=== PATIENT | female | born 1985 | race Caucasian/White ===

== ENCOUNTER → 2017-09-01 16:00 | Outpatient (CLI) | payer BC, SELFPAY ==
[2017-09-01 17:42] LABS: Absolute Lymphocyte Count 1.92 X10^3/ul (0.83-4.51); Absolute Neutrophil Count 6.3 X10^3/uL (2.0-7.7); Basophil# 0.02 X10^3/uL; Basophil% 0.2 % (0-1); Eosinophil# 0.05 X10^3/uL; Eosinophils% 0.5 % (0-5); Hematocrit 33.4 % (37-47); Hemoglobin 10.2 g/dl (12.0-15.0); Lymphocyte # 1.92 X10^3/ul (4.0); Mean Corp Hgb Conc 30.5 g/gl (32-36); Mean Corpuscular Hgb 24.4 pg (27.0-32.0); Mean Corpuscular Volume 79.9 fL (81-99); Mean Platelet Vol. 12.4 fl (6.2-12.0); Monocyte# 0.84 X10^3/uL; Monocyte% 9.2 % (0-10); Neutrophil # 6.28 X10^3/uL (2.7-7.7); Neutrophil % 68.9 % (47-70); POSITIVE COUNT NO; POSITIVE DIFFERENTIAL NO; POSITIVE MORPHOLOGY NO; Platelet Count 221 K/mm3 (150-450); RBC Distribution Width CV 16.9 % (11.6-14.6); RBC Distribution Width SD 48.4 fl (35.1-43.9); Red Blood Count 4.18 M/mm3 (4.2-5.4); White Blood Count 9.1 K/mm3 (4.4-11.0)
[2017-09-01 18:04] LABS: Thyroid Stim Hormone (TSH) 0.73 uIU/mL (0.358-3.74)
== END ==
PROVIDERS: Family Provider Family Medicine; PCP Family Medicine; Visit Provider Family Medicine
DX: F32.9 Major depressive disorder, single episode, unspecified (principal)
CPT/HCPCS: 36415; 84443; 85025

== ENCOUNTER → 2017-11-04 16:14 | Outpatient (CLI) | payer BC, SELFPAY ==
[2017-11-04 17:52] LABS: Iron 34 ug/dL (50-170)
[2017-11-04 17:59] LABS: Absolute Lymphocyte Count 2.43 X10^3/ul (0.83-4.51); Absolute Neutrophil Count 6.5 X10^3/uL (2.0-7.7); Basophil# 0.02 X10^3/uL; Basophil% 0.2 % (0-1); Eosinophil# 0.08 X10^3/uL; Eosinophils% 0.8 % (0-5); Hematocrit 33.9 % (37-47); Hemoglobin 10.4 g/dl (12.0-15.0); Lymphocyte # 2.43 X10^3/ul (4.0); Lymphocyte % 24.5 % (19-41); Mean Corp Hgb Conc 30.7 g/gl (32-36); Mean Corpuscular Hgb 24.6 pg (27.0-32.0); Mean Corpuscular Volume 80.1 fL (81-99); Mean Platelet Vol. 11.6 fl (6.2-12.0); Monocyte# 0.85 X10^3/uL; Monocyte% 8.6 % (0-10); Neutrophil # 6.51 X10^3/uL (2.7-7.7); Neutrophil % 65.8 % (47-70); Platelet Count 236 K/mm3 (150-450); RBC Distribution Width SD 52.9 fl (35.1-43.9); Red Blood Count 4.23 M/mm3 (4.2-5.4); White Blood Count 9.9 K/mm3 (4.4-11.0)
[2017-11-04 18:01] LABS: POSITIVE COUNT NO; POSITIVE DIFFERENTIAL NO; POSITIVE MORPHOLOGY NO
== END ==
PROVIDERS: Family Provider Family Medicine; PCP Family Medicine; Visit Provider Family Medicine
DX: D50.9 Iron deficiency anemia, unspecified (principal)
CPT/HCPCS: 36415; 83540; 85025

== ENCOUNTER 2018-03-08 16:00 | Outpatient (RCR) | payer OTHER, SELFPAY ==
--- NOTE | 2018-02-15 16:37 | HP.PTEVAL ---
Patient's Visit Information RUTH PIZANO is a 32 year old F referred to Physical Therapy by TRISH Heller with a diagnosis of Left Shoulder Pain. Date of Evaluation: 02/15/18 Physical Therapist: Francheska Gonzalez - Visit Plan Frequency: 2x /Week Duration: 3 Weeks Plan: Focus on scap s/s and impingment signs- modality of choice US or TENS - Subjective Subjective: Patient reports pain started over a month ago- what made her go to the [facility]- when she was pushing a rack it had a horrible pain in it. [facility]- the first time they gave restrictions of #10- wasn't getting better. Went back and she kept #10 weight and 40 hour week restriction- if sore after therapy would do an MRI. No injections or images. Was on vacation and it was still sore the first few days but it wasn't bad at the end becuase she wasn't using it. Worst: 5/10 agg: behind the back, sleeping on it, putting it up on top of the wheel for awhile. Eases: not using it Best: 0/10. Describes pain as numb and sometime she has tingling all the way down to the hand. Tingling is in all the fingers. If she moves it and shakes it off the pain goes away after a minute. Right hand domiante. Pain in the biceps tendon area. No issues with finger dexterity issues or dropping things. No neck pain. Gets migranes frequently but that is nothing new. Migraines are worse than heat- has them at least 2x a week. Sometimes she can push through and sometimes debilitating. Pain is normally on the yazidism of the head. No blurred vision or dizziness. Lifting up to #10 parts- grabbing it down- repetitive motion. Sleep: disturbed when she rolls over onto it- usually side or stomach sleeper. PMHx: healthy Meds: prozac generic. Restricions lifted Feb 26, 2018. - Objective Posture: FH, RS- should could correct with verbal and tactile cues- does not maintain. Gait: no deviation noted- good arm swing and trunk rotation- no guarding. Palpation: not tender to touch. ROM: WFL in all planes of the cervical, shoulder, elbow and wrist- pain with end range IR behind the back. Sensation: WNL. Strength: Scap: fair with mild winging bilaterally. Shoulder: 4+/5 throughout pain with flexion, abduction, IR, Elbow: 5/5, Wrist: 5/5, Camera Repair Technician: 60/65/70. Special test: sosa lawrence impingment: positive Neer: negative. - Goals Goal 1:: Patient will be I with HEP and progression Goal Time Frame: 4-6 Weeks Goal 2:: Patient will demo full IR with 0/10 pain Goal Time Frame: 4-6 Weeks Goal 3:: Patient will maintain proper posture t/o tx session to demo increased scap s/s. Goal Time Frame: 4-6 Weeks Goal 4:: Patient will report 0/10 pain with work activities - Rehabilitation Potential Physical Therapy Diagnosis: Patient presents with hypomobility- she has impingment signs and decreased strength/endurance leading to poor posture and increased pain with work activities and repetitive actions. Rehabilitation Potential: Good - Anticipated Interventions Patient/Client Instruction: Educate patient on: Benefits of Fitness Program For the Purpose of:: To improve ability of physical actions for home/community/work/leisure Therapeutic Exercise to Include: Strength training, Endurance training, Body mechanics, Postural training, Scapular Strength/Stabilization For the Purpose of:: To improve muscle performance and motor function TENS: Yes Cryotherapy (ice pack, ice massage): Yes Thermo therapy (hot pack): Yes Ultrasound (thermal/non thermal): Yes For the Purpose of:: To decrease pain, To decrease swelling/inflammation Thank you for the opportunity to evaluate your patient. For Medicare and Medicare HMO plans, please review the plan of care and approve it. It will need to be FAXED BACK to us at [phone] for Medicare purposes. Please let me know if there are questions or concerns regarding this plan of care. Physician Signature: Date:
--- NOTE | 2018-03-08 16:11 | HP.PTDCSUM ---
HP - PT D/C Summary It has been my pleasure to treat RUTH PIZANO under orders from TRISH Heller, for the diagnosis of Left Shoulder Pain for a total of 6 visit(s). Discharge Date: Please see the following information for a summary of their discharge status. - Subjective Subjective: Patient reports its better but when she reaches behind her back is still bothers her. Feels a difference- thu-thu okay but feels it more on and thursday. Can drive with her hand up longer without it bothering her. Worst 2/10 Best: 0/10. Mostly dull and achy and tenderness. Occasionally N/t but decreased- not enough to count. - Pain L SH Pain Intensity (Out of 10): Unrated - Overall Improvement % Improvement: 70 - Objective Objective/Function: No significant changes since IE objectively but subjective is better- Posture: good throughout Gait: no deviation noted- good arm swing and trunk rotation- no guarding. Palpation: not tender to touch. ROM: WFL in all planes of the cervical, shoulder, elbow and wrist- pain with end range IR behind the back. Sensation: WNL. Strength: Scap: fair with mild winging bilaterally. Shoulder: 4+/5 throughout pain with flexion, abduction, IR, Elbow: 5/5, Wrist: 5/5, Taxicab Starter: 65/65/75. Special test: sosa lawrence impingment: positive Neer: negative. - Goals Goal 1:: Patient will be I with HEP and progression Goal Progress: Goal Met Goal 2:: Patient will demo full IR with 0/10 pain Goal Progress: Progressing Goal 3:: Patient will maintain proper posture t/o tx session to demo increased scap s/s. Goal Progress: Progressing Goal 4:: Patient will report 0/10 pain with work activities Goal Progress: Progressing - Plan Plan: Discharge to [facility] and return to [facility] for further evaluation - D/C Information If there are questions or concerns regarding this patient's physical therapy, please feel free to call me at [phone]. Thank you for the referral of this patient. Sincerely, Francheska Gonzalez
== END 2018-03-08 19:00 | disposition home or self-care (01) ==
LOC: PT 16:00
PROVIDERS: Family Provider Family Medicine; PCP Family Medicine; Visit Provider Physician Assistant Surgical
DX: S46.912D Strain of unspecified muscle, fascia and tendon at shoulder and upper arm level, left arm, subsequent encounter (principal)
CPT/HCPCS: 97014; 97035; 97110; 97161; 97164; G0283

== ENCOUNTER → 2018-03-22 15:48 | Outpatient (CLI) | payer OTHER, SELFPAY ==
--- NOTE | 2018-03-22 15:50 | RAD_ITS ---
STUDY: X-RAY - LEFT SHOULDER REASON FOR EXAM: Female, 32 years old. Injury. Pain. TECHNIQUE: 4 view(s) of the shoulder. COMPARISON: None. FINDINGS: Normal glenohumeral articulation. Normal acromioclavicular joint. Normal acromion. There is no acute fracture, dislocation or destructive osseous pathology. Normal humeral head and visualized proximal humerus. The soft tissue structures are unremarkable. Normal visualized pulmonary apex. RAD/Shoulder min 2 Views IMPRESSION: Normal x-ray examination of the shoulder. Electronically Signed: Alverto Kurtz DO at 22:12 EDT Tel [phone], Service support ,
== END ==
PROVIDERS: Family Provider Family Medicine; PCP Family Medicine; Referring Provider Physician Assistant; Visit Provider Physician Assistant
DX: S46.912A Strain of unspecified muscle, fascia and tendon at shoulder and upper arm level, left arm, initial encounter (principal)
CPT/HCPCS: 73030

== ENCOUNTER → 2018-06-25 16:39 | Outpatient (CLI) | payer BC, SELFPAY ==
[2018-03-22 15:59] VITALS: BMI 26.9
[2018-07-02 12:25] LABS: HPV APTIMA, High Risk Positive (Negative)
[2018-07-02 12:44] LABS: HPV Reflexed? YES, CHARGE PATIENT
== END ==
PROVIDERS: Visit Provider Obstetrics & Gynecology
DX: Z12.4 Encounter for screening for malignant neoplasm of cervix (principal)
CPT/HCPCS: 87624; 88175; G0145

== ENCOUNTER → 2018-07-14 17:20 | Outpatient (CLI) | payer BC, SELFPAY ==
--- NOTE | 2018-07-14 | CER_PTH ---
PATIENT: RUTH PIZANO LOC: [facility] U#:[id number] AGE/SX: 39/F ROOM: RE07/14/[address]: Dr. Eliot Tripp MD : 1985 BED: DIS: SPEC #: [id number] RECD: 07/14/18 17:20 STATUS: KATELYN TROY #: [id number] JM: 07/14/18 00:[address]: Eilot Tripp DEPT: SURGICAL PATHOLOGY RECD BY: Nahum Weldon Tissues: A - Uterine cervix, NOS B - Endocervical Procedures: Surgery Specimen Level IV HEADER OPERATION: Colposcopy with biopsy PRE-OP DIAGNOSIS: LGSIL R87.612 TISSUE SUBMITTED: A - Cervical biopsy, B - ECC MICROSCOPIC DIAGNOSIS A. Cervix, biopsy: Focal HPV change/MARTIR I. Squamous metaplasia and chronic inflammation. B. Endocervix, curettings: Strips of benign superficial endocervix. Detached squamous epithelial cells with changes suspicious for HPV change. AM:terrence 07/16/18 COMMENT A & B. Results from immunohistochemistry ([id number]) for surrogate HPV marker (p16) will be reported separately. MICROSCOPIC DESCRIPTION Slides are reviewed. GROSS DESCRIPTION A - Received in fixative is one container labeled with the patient's name and designated cervix biopsy. The specimen consists of multiple irregular fragments of light fritz soft tissue that in aggregate measure 0.6 x 0.5 x 0.1 cm. The specimen is totally submitted in one cassette. B - Received in fixative is one container labeled with the patient's name and designated ECC. The specimen consists of reddish-fritz mucoid material aggregating to 1 x 1 x <0.1 cm. The specimen is totally submitted in one cassette. / AM:terrence 07/15/18 TC:3 CPT: 76504 x2
--- NOTE | 2018-07-14 | IMM_PTH ---
PATIENT: RUTH PIZANO LOC: [facility] U#:[id number] AGE/SX: 39/F ROOM: RE07/14/[address]: Dr. Eliot Tripp MD : 1985 BED: DIS: SPEC #: [id number] RECD: 07/19/18 09:20 STATUS: KATELYN TROY #: [id number] JM: 07/14/18 00:[address]: Eliot Tripp DEPT: IMMUNOHISTOCHEMISTRY RECD BY: Cherie Olivas Tissues: A - Uterine cervix, NOS B - Endocervical Procedures: p16 (initial) KI-67 (add) PHYSICIAN & [place] [id number] SPECIMEN INFORMATION: Tissue Source: A - Cervical biopsy, B - ECC Clinical Info: SABINASIL Specimen Number: [id number] A & B CPT code: 53603 x2, 19421 x2 METHODOLOGY: Deparaffinized sections of prefer/formalin-fixed tissue or PAP/DQ stained slides are incubated with monoclonal/polyclonal antibodies/oligonucleotide probes. Localization is made via biotin free immunoperoxidase method. Appropriate controls are performed and reacted as expected. Results on target cell population are indicated in the following table: RESULTS: ANTIBODY / CLONE RESULT Block A P16 (E6H4) positive, focal, patchy Ki-67 (30-9) positive, low Block B P16 (E6H4) positive, focal, patchy Ki-67 (30-9) positive, low These tests were developed and their performance characteristics determined by [facility]. They may not have been cleared or approved by the U.S. Food and Drug Administration. The FDA has determined that such clearance or approval is not necessary. INTERPRETATION: A. Cervical biopsy: Consistent with focal HPV change, MARTIR I (LSIL). B. Endocervix, curettage: Consistent with focal HPV change, MARTIR I (LSIL). AM:terrence 07/20/18
== END ==
LOC: LABSPEC 07-15 07:50
PROVIDERS: Referring Provider Obstetrics & Gynecology; Visit Provider Obstetrics & Gynecology
DX: R87.612 Low grade squamous intraepithelial lesion on cytologic smear of cervix (LGSIL) (principal)
CPT/HCPCS: 88305; 88341; 88342

== ENCOUNTER → 2019-05-18 14:30 | Outpatient (CLI) | payer BC, SELFPAY ==
[2019-05-18 16:30] VITALS: BMI 26.9
== END ==
PROVIDERS: Referring Provider Physician Assistant; Visit Provider Physician Assistant
DX: J02.9 Acute pharyngitis, unspecified (principal)
CPT/HCPCS: 87070

== ENCOUNTER → 2019-07-25 16:46 | Outpatient (CLI) | payer BC, SELFPAY ==
[2019-05-18 16:30] VITALS: BMI 26.9
[2019-07-28 20:52] LABS: HPV APTIMA, High Risk Positive (Negative); HPV Reflexed? YES, CHARGE PATIENT
== END ==
PROVIDERS: Visit Provider Obstetrics & Gynecology
DX: Z12.4 Encounter for screening for malignant neoplasm of cervix (principal)
CPT/HCPCS: 87624; 88175; G0145

== ENCOUNTER → 2020-04-06 12:21 | Outpatient (CLI) | payer BC, SELFPAY ==
[2019-05-18 16:30] VITALS: BMI 26.9
[2020-04-06 15:03] LABS: Absolute Lymphocyte Count 2.32 X10^3/uL (0.83-4.51); Absolute Neutrophil Count 6.3 X10^3/uL (2.0-7.7); Basophil# 0.03 X10^3/uL; Basophil% 0.3 % (0-1); Eosinophil# 0.07 X10^3/uL; Eosinophils% 0.7 % (0-5); Hematocrit 42.9 % (37-47); Hemoglobin 13.3 g/dL (12.0-15.0); Lymphocyte # 2.32 X10^3/ul (4.0); Lymphocyte % 24.7 % (19-41); Mean Corpuscular Hgb 27.5 pg (27.0-32.0); Mean Corpuscular Volume 88.6 fL (81-99); Mean Platelet Vol. 12.3 fl (6.2-12.0); Monocyte# 0.63 X10^3/uL; Monocyte% 6.7 % (0-10); NRBC Flagged by Analyzer 0 % (0-5); Neutrophil # 6.32 X10^3/uL (2.7-7.7); Neutrophil % 67.2 % (47-70); Platelet Count 253 K/mm3 (150-450); RBC Distribution Width CV 14.6 % (11.6-14.6); RBC Distribution Width SD 47.8 fl (35.1-43.9); Red Blood Count 4.84 M/mm3 (4.2-5.4); White Blood Count 9.4 K/mm3 (4.4-11.0)
[2020-04-06 16:06] LABS: Vitamin D,25 Hydroxy 18.2 ng/mL
[2020-04-06 16:26] LABS: Anion Gap 10 (5-15); BUN 10 mg/dL (7-18); BUN/Creat Ratio 13.1 RATIO (10-20); Chloride 108 mmol/L (98-107); Creatinine, Serum 0.77 mg/dL (0.55-1.02); EST Glomerular Filtration Rate 90 mL/min (>60); Est Glom Filt Rate - Afr Amer 109 mL/min (>60); Glucose 69 mg/dL (74-106); Potassium 4.3 mmol/L (3.5-5.1); Sodium Level 141 mmol/L (136-145)
== END ==
PROVIDERS: PCP Family Medicine; Referring Provider Family Medicine; Visit Provider Family Medicine
DX: D69.9 Hemorrhagic condition, unspecified (principal); E55.9 Vitamin D deficiency, unspecified
CPT/HCPCS: 36415; 80048; 82306; 85025

== ENCOUNTER → 2020-04-19 17:42 | Outpatient (CLI) | payer BC, SELFPAY ==
[2020-04-12 09:49] VITALS: BMI 28.7
--- NOTE | 2020-04-19 17:43 | MRI_ITS ---
STUDY: MRI LEFT KNEE REASON FOR EXAM: Left knee pain for a few weeks, evaluate for popliteal cyst, meniscal tear. TECHNIQUE: Standardized fat and water weighted pulse sequences were obtained in all 3 orthogonal planes. COMPARISON: Radiographs 04/12/2020. FINDINGS: Normal medial meniscus. Normal hyaline cartilage of the medial femorotibial compartment. Normal medial femoral condyle and tibial plateau. Normal medial collateral ligamentous complex (MCL). Normal distal semimembranosus, gracilis and semitendinosus tendons. Normal lateral meniscus. Normal hyaline cartilage of the lateral femorotibial compartment. Normal lateral femoral condyle and tibial plateau. Normal proximal tibiofibular articulation. Normal lateral collateral (fibular) ligament. Normal popliteus tendon. Normal biceps femoris tendon. Normal anterior cruciate ligament (series 6 image 11). Normal posterior cruciate ligament (PCL). Normal congruent patellofemoral articulation. Normal hyaline cartilage of the patellofemoral compartment. Normal medial and lateral patellar retinaculum. Normal visualized quadriceps tendon. Normal patellar tendon. Normal Hoffa''s fat pad. There is no joint effusion. There is a small volume of extravasated fluid at the posterior medial aspect of the knee from a small ruptured popliteal cyst (T2 sagittal images 6-8). The otherwise visualized osseous structures are unremarkable. MRI/Lower Ext Joint Only (Routine) IMPRESSION: Extravasated fluid from a small ruptured popliteal cyst. No demonstrated meniscal tear. Electronically Signed: Colin Rust MD at 9:40 EDT Tel , Service support ,
== END ==
LOC: MRI 17:43
PROVIDERS: PCP Family Medicine; Referring Provider Orthopaedic Surgery; Visit Provider Orthopaedic Surgery
DX: S83.207A Unspecified tear of unspecified meniscus, current injury, left knee, initial encounter (principal); M25.562 Pain in left knee; M25.362 Other instability, left knee
CPT/HCPCS: 73721

== ENCOUNTER 2020-04-25 07:48 | Outpatient (RCR) | payer BC, SELFPAY ==
--- NOTE | 2020-04-25 10:53 | HP.PTEVAL_ITS ---
Patient's Visit Information RUTH PIZANO is a 34 year old F referred to Physical Therapy by Dr. Diana Boone DO with a diagnosis of LEFT KNEE PAIN ,INSTABILITY. Date of Evaluation: 04/25/20 Physical Therapist: Art Romero, PT, Cert MDT, OCS - Visit Plan Frequency: 2x /Week Duration: 4 Weeks Plan: PT interventions focus on HEP ,strengthening quads/hams/hip,functional strengthening and modalties for pain - Subjective This 34 y/o female presnets to physical therapy with left knee pain due to instability.Patient has had knee pain for about month with incidous onset of pain. Patient pain located on medial patella. Patient symptoms described as ache. Seen DR sosa MRI showed selling and mild ruptured popilteal cyst. Patient seen DR Chaparro recommended PT. Aggraveting morning ,sitting,squatting.kneeling and standing affects job. Alleviating factores ice. Denies paratghesia/tingling. Stairs uncomfortable. Patient has occassional poping . Patient symptoms affects QOL and job demands. SOCAIL: single. 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 GAIT:reciprocal pattern. EDEMA;absent. PALPATION: unremarkable. AROM: supine knee flexion 0-135 degrees. MMT: quads/hams 4/5,hip abd 4-/5,hip add 4-/5 ,ankle 4/5. FLEXABLITY: hams mild tight - Special Tests R Knee Ofelia - Meniscus: Negative R Knee Apley - Meniscus: Negative R Knee Disco Test - Meniscus: Negative R Knee Anterior Drawer - ACL: Negative R Knee Posterior Drawer - PCL: Negative R Knee Valgus - MCL: Negative R Knee Varus - LCL: Negative R Knee Patellar Apprehension - PFS: Positive R Knee Patellar Grind - PFS: Positive - Goals Goal 1:: I with HEP. Goal Time Frame: 4-6 Weeks Goal 2:: Decrease pain left knee by 60% or>to improve function with walking and standing Goal Time Frame: 4-6 Weeks Goal 3:: Patient to improve LFES scotre by 5 -10 points or > to improve QOL and function. Goal Time Frame: 4-6 Weeks Goal 4:: Patient be able to stand and perform job demands with min limiations with less pain. Goal Time Frame: 4-6 Weeks Goal 5:: Patient increase strength quads/hams 5/5 and hip 5/5 to improve function - Rehabilitation Potential Physical Therapy Diagnosis: Patient has left knee pain with instability with patellafemoral lateral deviation with MRI showed popilteal cyst and edema with pain inpairs standing and squatting impars job demands Rehabilitation Potential: Good - Anticipated Interventions Patient/Client Instruction: Educate patient on: Condition, Plan of Care For the Purpose of:: To decrease pain, To increase ROM, To improve muscle performance and motor function, To improve ability to perform ADL's, To increase tolerance to activity/condition/position, To improve performance and independence with ADL's, To improve ability of physical actions for home/community/work/leisure, To improve health of tissue, To decrease soft tissue restriction, To increase flexibility/ROM, To reduce risk of recurrence, To improve ability to perform tasks related to life management Therapeutic Exercise to Include: Strength training, Balance training, Flexibilty training Comment: quads/hams/hip For the Purpose of:: To decrease pain, To improve muscle performance and motor function, To improve ability to perform ADL's, To increase tolerance to activity/condition/position, To improve performance and independence with ADL's, To improve ability of physical actions for home/community/work/leisure, To improve balance, To reduce risk of recurrence, To improve ability to perform tasks related to life management TENS: Yes IF ES: Yes Cryotherapy (ice pack, ice massage): Yes Thermo therapy (hot pack): Yes Ultrasound (thermal/non thermal): Yes For the Purpose of:: To decrease pain, To decrease swelling/inflammation, To improve nutrient delivery to tissue, To increase oxygenation perfusion, To improve health of tissue, To decrease soft tissue restriction Thank you for the opportunity to evaluate your patient. For Medicare and Medicare HMO plans, please review the plan of care and approve it. It will need to be FAXED BACK to us at [phone] for Medicare purposes. For Medicare only, by signing this I certify the plan of care. Please let me know if there are questions or concerns regarding this plan of care. Physician Signature: Date:
--- NOTE | 2020-06-27 11:08 | HP.PT.NRP ---
RUTH PIZANO was seen in my office for initial evaluation on 04/25/20. The following Plan of Care was established for this patient: Initial Frequency: 2x /Week Initial Duration: 4 Weeks Patient/Client Instruction: Educate patient on: Condition, Plan of Care For the Purpose of:: To decrease pain, To increase ROM, To improve muscle performance and motor function, To improve ability to perform ADL's, To increase tolerance to activity/condition/position, To improve performance and independence with ADL's, To improve ability of physical actions for home/community/work/leisure, To improve health of tissue, To decrease soft tissue restriction, To increase flexibility/ROM, To reduce risk of recurrence, To improve ability to perform tasks related to life management Therapeutic Exercise to Include: Strength training, Balance training, Flexibilty training For the Purpose of:: To decrease pain, To improve muscle performance and motor function, To improve ability to perform ADL's, To increase tolerance to activity/condition/position, To improve performance and independence with ADL's, To improve ability of physical actions for home/community/work/leisure, To improve balance, To reduce risk of recurrence, To improve ability to perform tasks related to life management TENS: Yes IF ES: Yes Cryotherapy (ice pack, ice massage): Yes Thermo therapy (hot pack): Yes Ultrasound (thermal/non thermal): Yes For the Purpose of:: To decrease pain, To decrease swelling/inflammation, To improve nutrient delivery to tissue, To increase oxygenation perfusion, To improve health of tissue, To decrease soft tissue restriction This patient was last seen in our office . Pertinent comments regarding their Physical therapy will appear below: Patient seen for PT for left knee pain for HEP and d/c At this point I will be discontinuing this patient from physical therapy. I would be happy to see this patient again in the future if found appropriate by the physician. Thank you! Art Romero, PT, Cert MDT, OCS
== END 2020-04-25 19:00 | disposition home or self-care (01) ==
LOC: PT 07:48
PROVIDERS: PCP Family Medicine; Referring Provider Orthopaedic Surgery; Visit Provider Orthopaedic Surgery
DX: M25.362 Other instability, left knee (principal); M25.562 Pain in left knee
CPT/HCPCS: 97110; 97161

== ENCOUNTER → 2021-02-28 13:50 | Outpatient (CLI) | payer BC, SELFPAY ==
[2021-03-05 10:30] LABS: HPV APTIMA, High Risk Negative (Negative)
[2021-03-05 10:32] LABS: HPV Reflexed? YES, CHARGE PATIENT
== END ==
PROVIDERS: PCP Family Medicine; Visit Provider Obstetrics & Gynecology
DX: Z12.4 Encounter for screening for malignant neoplasm of cervix (principal)
CPT/HCPCS: 87624; 88175; G0145

== ENCOUNTER → 2021-12-18 | Outpatient (CLI) | payer BC, SELFPAY ==
[2021-12-21 00:06] LABS: Chlamydia By Nucleic Acid AMP Negative (Negative)
[2021-12-21 15:30] LABS: Gonococcus By Nucleic Acid AMP Negative (Negative)
== END | disposition home or self-care (01) ==
LOC: LABSPEC 14:13
PROVIDERS: PCP Family Medicine; Visit Provider Obstetrics & Gynecology
DX: Z11.3 Encounter for screening for infections with a predominantly sexual mode of transmission (principal)
CPT/HCPCS: 87491; 87591

== ENCOUNTER → 2022-05-01 | Outpatient (CLI) | payer BC, SELFPAY ==
[2022-05-12 17:11] LABS: HPV APTIMA, High Risk Positive (Negative)
== END | disposition home or self-care (01) ==
LOC: LABSPEC 15:53
PROVIDERS: PCP Family Medicine; Visit Provider Obstetrics & Gynecology
DX: Z12.4 Encounter for screening for malignant neoplasm of cervix (principal)
CPT/HCPCS: 87624; 88175; G0145

== ENCOUNTER 2022-08-14 08:18 | Emergency (ER) | payer BC, SELFPAY ==
[2022-08-14 08:19] VITALS: BP 143/92; PULSE 96; RESP 16; TEMP 36.3; O2SAT 98; BMI 28.5
[2022-08-14] MEDS: 0.9% Normal Saline 1,000 ML 1000 ML IV (09:29)
[2022-08-14] MEDS: Morphine 4 MG/ML Syringe IV (09:29)
[2022-08-14 09:37] LABS: Absolute Lymphocyte Count 1.52 X10^3/uL (0.83-4.51); Basophil# 0.03 X10^3/uL; Basophil% 0.2 % (0-1); Eosinophil# 0.06 X10^3/uL; Eosinophils% 0.5 % (0-5); Hematocrit 39.6 % (37-47); Hemoglobin 12.6 g/dL (12.0-15.0); Lymphocyte # 1.52 X10^3/ul (0.83-4.51); Lymphocyte % 12.1 % (19-41); Mean Corp Hgb Conc 31.8 g/dL (32-36); Mean Corpuscular Hgb 27.9 pg (27.0-32.0); Mean Corpuscular Volume 87.8 fL (81-99); Mean Platelet Vol. 11.6 fl (6.2-12.0); Monocyte# 0.99 X10^3/uL; Monocyte% 7.9 % (0-10); NRBC Flagged by Analyzer 0 % (0-5); Neutrophil # 9.96 X10^3/uL (2.7-7.7); Neutrophil % 78.9 % (47-70); Platelet Count 210 K/mm3 (150-450); RBC Distribution Width CV 14.9 % (11.6-14.6); RBC Distribution Width SD 47.9 fl (35.1-43.9); Red Blood Count 4.51 M/mm3 (4.2-5.4); White Blood Count 12.6 K/mm3 (4.4-11.0)
[2022-08-14 09:46] LABS: Anion Gap 6 (5-15); BUN 9 mg/dL (7-18); BUN/Creat Ratio 10.9 RATIO (10-20); Chloride 107 mmol/L (98-107); Creatinine, Serum 0.83 mg/dL (0.55-1.02); EST Glomerular Filtration Rate 82 mL/min (>60); Est Glom Filt Rate - Afr Amer 99 mL/min (>60); Estimated Creatinine Clearance 88.49 ml/min; Glucose 99 mg/dL (74-106); Potassium 3.6 mmol/L (3.5-5.1); Sodium Level 137 mmol/L (136-145)
--- NOTE | 2022-08-14 10:22 | EX.ED.DYSGE1 ---
HPI History of Present Illness Chief Complaint: Cellulitis Informant: patient Onset/Context/Timing Onset: Days (3) Context: Gradual Onset Timing: Continuous Quality: Burning Location: Left upper abdomen Worsened by: Movement Relieved by: Rest Narrative Narrative: Patient presents with cellulitis over her left upper abdomen that has been getting worse over the last 3 days. Patient was seen yesterday and was started on antibiotics for this. Patient states that they selwyn a line around the area of erythema. Patient states that the redness is gone past this line today. Patient states her pain is worse today. Patient states her pain is constant. Patient describes it as burning. Patient states it is localized to the left upper abdomen. Patient states it is worse with movement and better with rest. Patient admits to some subjective chills but denies any fevers. Patient denies any discharge or drainage. Patient states she was told that if the redness spread outside of the line she should come to the emergency department to have blood work and IV antibiotics. [facility] Medical History (Updated 08/14/22 @ 10:[address] Selvin Martino DO) Anemia HTN (hypertension) Recent childbirth Severe headache Shoulder pain vaginal Home Medications desogestrel-e.estradiol 0.15 mg-0.02 mg(21)/e.estrad 0.01 mg(5) tablet PO #84 tabs 01/30/19 [History Last Taken Unknown] Allergy/AdvReac Type Severity Reaction Status Date / Time No Known Allergies Allergy Verified 01/30/19 12:03 Family History (Updated 04/12/20 @ 09:58 by Sonia Sinhg) Grandmother Colon cancer Mother Depression with anxiety Brother Depression with anxiety Daughter Depression with anxiety Surgical History (Updated 08/14/22 @ 10:[address] Selvin Martino DO) History of carpal tunnel surgery [place] teeth extracted Social History household members: significant other and children housing: apartment current occupational status: employed current occupation: [employer] Smoking Status: Never smoker alcohol intake: current substance use type: does not use what type of physical activity do you participate in: none do you feel safe at home: Yes ROS ROS ED Constitutional Constitutional ED: Reports chills and subjective; Denies fever(s) Eyes Eyes: Denies blurry vision or change in vision ENT ENT ED: Denies rhinorrhea or sore throat Cardiovascular Cardiovascular: Denies chest pain or palpitations Respiratory/Chest Respiratory/Chest: Denies cough or dyspnea Gastrointestinal Gastrointestinal: Reports nausea; Denies vomiting Genitourinary Genitourinary ED: Denies dysuria or hematuria Musculoskeletal Musculoskeletal: Denies back pain or neck pain Integumentary Reports rash; Denies abscess Neurologic Neurologic: Denies headache(s) or weakness Allergic/Immunologic Allergic/Immunologic ED: Denies mouth swelling or urticaria EXAM Physical Exam Const Vital Signs: 08/14/22 08:19 Temperature 97.3 F L Temperature Source Temporal Pulse Rate 96 Respiratory Rate 16 Blood Pressure 143/92 H Blood Pressure Mean 109 Pulse Ox 98 Oxygen Delivery Method Room Air Positive well nourished and well developed General Appearance ED: well developed HEENT Reports moist mucous membranes Neck supple and no JVD Resp normal respiratory effort and clear to auscultation bilaterally Cardio regular rate, regular rhythm and no murmurs GI normal to inspection, nondistended, normoactive bowel sounds and non-tender Palpation: soft Extremity normal to inspection General Extremety ED: Negative for edema or tenderness General Extremity: Negative for edema Neuro oriented x3, CN's II-XII intact bilaterally and no sensory deficits noted Sensorium / Orientation: alert Motor Exam: strength 5/5 throughout Psych mental status grossly normal Skin Skin Narrative: There is tenderness, erythema, and induration over the left upper abdomen. There is 1 small pustule. There is no fluctuance. There is no active discharge or drainage noted. There is no other abdominal tenderness. MDM MDM MDM Narrative Medical decision making narrative: Differential diagnosis includes cellulitis and abscess, Lab Data Lab results narrative: CBC was reviewed and showed a slight leukocytosis of 12.6. Basic metabolic profile was reviewed and was normal. Labs: Laboratory Results - last 24 hr 08/14/22 08/14/22 09:27 09:27 WBC 12.6 H RBC 4.51 Hgb 12.6 Hct 39.6 MCV 87.8 MCH 27.9 MCHC 31.8 L RDW Std Deviation 47.9 H RDW Coeff of Colten 14.9 H Plt Count 210 MPV 11.6 Immature Gran % (Auto) 0.400 Neut % (Auto) 78.9 H Lymph % (Auto) 12.1 L Mobile % (Auto) 7.9 Eos % (Auto) 0.5 Baso % (Auto) 0.2 Absolute Neuts (auto) 10.0 H Absolute Lymphs (auto) 1.52 Nucleated RBC % 0 Sodium 137 Potassium 3.6 Chloride 107 Carbon Dioxide 24.0 Anion Gap 6 BUN 9 Creatinine 0.83 Estim Creat Clear Calc 88.49 Est GFR (MDRD) Af Amer 99 Est GFR (MDRD) Non-Af 82 BUN/Creatinine Ratio 10.9 Glucose 99 Calcium 9.0 Treatment and Re-Evaluation Narrative: Patient is given a dose of Unasyn here. I attempted to deroofed the the small pustule. There is no purulent discharge or drainage expressed. Patient tolerated this well. Patient is given a dose of morphine. Patient was given IV fluids. Patient was advised of her findings. Patient was instructed to continue with her antibiotics as prescribed. Patient was instructed to follow-up with her primary care physician in 5 to 7 days. Patient understood and was agreeable with the plan. All questions were answered. Discharge Plan Triage Chief Complaint: Cellulitis ED Provider: Selvin Martino Dx/Rx/DC Orders Clinical Impression: Cellulitis of left abdominal wall Instructions: ED Cellulitis Prescriptions: No Action desog-e.estradiol/e.estradiol 0.15-0.02 mgx21 /0.01 mg x 5 tablet PO Qty: 84 Label Comments: TAKE 1 TABLET BY MOUTH EVERY DAY Primary Care Provider: Aliya Moore Referrals: Aliya Moore MD [Primary Care Provider] - 3-5 Days Disposition Disposition: Home, Self Care
[2022-08-14 10:57] VITALS: BP 130/87; PULSE 79; RESP 16; O2SAT 99
== END 2022-08-14 10:58 | disposition home or self-care (01) ==
PROVIDERS: Emergency Provider Emergency Medicine; PCP Family Medicine; Visit Provider Emergency Medicine
DX: L03.311 Cellulitis of abdominal wall (principal)
CPT/HCPCS: 80048; 85025; 96365; 96375; 99283; J7030; J7050; A4216; J0295

== ENCOUNTER → 2024-01-19 | Outpatient (CLI) | payer BC, SELFPAY | END | disposition home or self-care (01) | LOC: MFPLAB 15:10 | PROVIDERS: PCP Family Medicine; Visit Provider Family Medicine | DX: Z00.00 Encounter for general adult medical examination without abnormal findings (principal) ==